=== PATIENT | female | born 1990 | race Caucasian/White ===

== ENCOUNTER 2017-07-16 18:39 | Emergency (ER) | END 2017-07-16 18:58 | disposition home or self-care (01) ==

== ENCOUNTER 2017-12-16 17:43 | Emergency (ER) | END 2017-12-16 22:09 | disposition home or self-care (01) ==

== ENCOUNTER 2017-12-20 17:14 | Emergency (ER) | END 2017-12-20 20:46 | disposition home or self-care (01) ==

== ENCOUNTER 2018-06-12 02:07 | Emergency (ER) | payer MEDICAID, OTHER ==
[~2018-06-12] VITALS: Ht 152.4 cm; Wt 56.2 kg
[~2018-06-12 02:07] MED LIST: ACET325T33 PO; CEPH-443 PO; CIPR-193 PO; FERR27TA; GUAI-637 PO; HYDR-4011 PO; HYDR-843 PO; IBUP-1542 PO; IBUP800T48 PO; NITR-58 PO; PENI500T PO; PHEN-538 PO; PREN1TAB49; SODI44SP11 NASAL; SULF1TAB31 PO
[2018-06-12 02:21] VITALS: Ht 152.4 cm; Wt 56.2 kg
[2018-06-12] MEDS ORDERED: ACETAMINOPHEN 500 MG TAB PO STA (03:06)
--- NOTE | 2018-06-12 03:06 | ERD ---
ER Documentation Chief Complaint Chief Complaint Pt reportsa fever and bodyaches x 4 days HPI This is a 28-year-old female who presents emergency department with complaints of fever, generalized body aches for 4 days. LMP: May 06, 2018. . Denies headache, head injury, loss of consciousness, dizziness, neck pain, neck stiffness, throat pain, difficulty swallowing, difficulty breathing lying flat, shoulder pain, chest pain, back pain, abdominal pain, nausea, vomiting, constipation, diarrhea, urinary symptoms, or possibility being , loss of bowel and bladder control, trauma, injury, falls, difficulty walking due to pain, numbness or tingling sensation, calf pain, recent travel, recent major surgery in the last 3 weeks, calf pain, recent long travel, recent exposure to any illness, recent antibiotic use in the last 3 months, chills, seizures. Past medical history: Denies. Surgical history: Denies. Social: Denies smoking, use of alcoholic beverages, use of illegal drugs. ROS All systems reviewed and are negative except as per history of present illness. Medications Home Meds Active Scripts Acetaminophen* (Tylophen*) 500 Mg Capsule, 1 CAP PO Q6H PRN for PAIN AND OR ELEVATED TEMP, #20 CAP Prov:PASILABANLAURENT F 06/12/18 Ibuprofen* (Motrin*) 600 Mg Tab, 600 MG PO Q6H PRN for PAIN AND OR ELEVATED TEMP, #30 TAB Prov:PASILABANLAURENT F 06/12/18 Oseltamivir Phosphate* (Tamiflu*) 75 Mg Capsule, 75 MG PO BID for 5 Days, CAP Prov:PASILABANLAURENT F 06/12/18 Azithromycin* (Zithromax*) 250 Mg Tablet, 250 MG PO .ZPACK DIRECTED, #6 TAB TAKE 500 MG (2 TABS) THE FIRST DAY THEN 250 MG (1 TAB) DAYS 2-5 Prov:PASILABANLAURENT F 06/12/18 Benzonatate* (Tessalon Perle*) 100 Mg Capsule, 100 MG PO Q8H PRN for COUGH, #15 CAP Prov:PASILABANLAURENT F 06/12/18 Hydrocodone/Acetaminophen ([place] 5-325 Tablet) 1 Each Tablet, 1 TAB PO Q6H PRN for PAIN, #7 TAB Prov:JOSE DE JESUS HANNA MD 12/20/17 Ciprofloxacin Hcl* (Ciprofloxacin Hcl*) 250 Mg Tablet, 250 MG PO BID, #14 TAB Prov:JOSE DE JESUS HANNA MD 12/20/17 Phenazopyridine Hcl* (Pyridium*) 200 Mg Tab, 200 MG PO TID PRN for URINARY PAIN, #6 TAB Prov:KALYANI VANN NP 12/16/17 Nitrofurantoin Monohyd Macrocr* (Macrobid*) 100 Mg Capsr, 100 MG PO BID for 7 Days, CAP Prov:KALYANI VANN NP 12/16/17 Hydroxyzine Hcl* (Hydroxyzine Hcl*) 25 Mg Tablet, 25 MG PO Q8H PRN for ITCHING, #30 TAB Prov:KALYANI VANN NP 07/16/17 Ibuprofen* (Motrin*) 600 Mg Tab, 600 MG PO Q6H PRN for PAIN AND OR ELEVATED TEMP, #30 TAB Prov:KALYANI VANN NP 07/16/17 Sulfamethoxazole/Trimethoprim* (Bactrim Ds* Tablet) 1 Each Tablet, 1 TAB PO BID, #20 TAB Prov:KALYANI VANN NP 07/16/17 Cephalexin* (Keflex*) 500 Mg Capsule, 500 MG PO QID for 10 Days, CAP Prov:KALYANI VANN NP 07/16/17 Acetaminophen* (Tylenol*) 325 Mg Tablet, 2 TAB PO Q6 PRN for PAIN AND OR ELEVATED TEMP, #20 TAB Prov:ZEE MARSH PA-C 06/29/15 Ibuprofen* (Motrin*) 800 Mg Tab, 800 MG PO Q6, #30 TAB Prov:ZEE MARSH PA-C 06/29/15 Penicillin V Potassium* (Penicillin V K*) 500 Mg Tab, 500 MG PO BID for 7 Days, TAB Prov:ZEE MARSH PA-C 06/29/15 Sodium Chloride (Saline Nasal [place]) 45 Ml [place], 2 SPRAYS NASAL Q2H PRN for NASAL CONGESTION, #1 BOTTLE Prov:ALISA CASTILLO NP 06/24/15 Guaifenesin* (Robitussin*) 100 Mg/5 Ml Syrup, 200 MG PO Q4H PRN for COUGH, #120 ML Prov:ALISA CASTILLOEduardo [employer] 06/24/15 Reported Medications Ferrous Sulfate (Iron) 1 Tab Tablet 02/25/10 Vits W-Ca,Fe,Fa(<1MG) () 1 Tab Tablet 02/25/10 Allergies Allergies: Coded Allergies: No Known Allergy (Verified Allergy, Unknown, 02/22/09) PMhx/Soc History of Surgery: No Anesthesia Reaction: No Hx Neurological Disorder: No Hx Respiratory Disorders: No Hx Cardiac Disorders: No Hx Psychiatric Problems: No Hx Miscellaneous Medical Probl: Yes (UTIs) Hx Alcohol Use: No Hx Substance Use: No Hx Tobacco Use: No Physical Exam Vitals Physical Exam Const: No acute distress Head: Atraumatic Eyes: Normal Conjunctiva ENT: Normal External Ears, Nose and Mouth. Neck: Full range of motion. No meningismus. Resp: Clear to auscultation bilaterally. No accessory muscle use on breathing. Cardio: Regular rate and rhythm, no murmurs Abd: Soft, non tender, non distended. Normal bowel sounds Skin: No petechiae or rashes Back: No midline or flank tenderness Ext: No cyanosis, or edema Neur: Awake and alert. No neurological deficits. Psych: Normal Mood and Affect Results 24 hrs Laboratory Tests Test 06/12/18 03:17 06/12/18 03:30 Urine Color YELLOW Urine Clarity SLIGHTLY CLOUDY Urine pH 5.0 Urine Specific [place] 1.025 Urine Ketones 2+ mg/dL Urine Nitrite NEGATIVE mg/dL Urine Bilirubin NEGATIVE mg/dL Urine Urobilinogen NEGATIVE mg/dL Urine Leukocyte Esterase NEGATIVE Jaida/ul Urine Microscopic RBC 2 /HPF Urine Microscopic WBC 3 /HPF Urine Squamous Epithelial Cells MODERATE /HPF Urine Mucus MODERATE /HPF Urine Hemoglobin NEGATIVE mg/dL Urine Glucose NEGATIVE mg/dL Urine Total Protein NEGATIVE mg/dl POC Beta HCG, Qualitative NEGATIVE Current Medications Medications Dose Sig/Geo Start Time Status Last (Trade) Ordered Route PRN Stop Time Admin Dose Reason Admin 1,000 mg ONCE STAT 06/12/18 DC 06/12/18 Acetaminophen PO 03:06 03:29 (Tylenol 06/12/18 03:08 Tab) Ibuprofen 600 mg ONCE ONCE 06/12/18 DC 06/12/18 (Motrin) PO 03:30 03:28 06/12/18 03:31 Oseltamivir 75 mg ONCE ONCE 06/12/18 DC 06/12/18 Phosphate PO 04:00 04:07 (Tamiflu) 06/12/18 04:01 Procedures/MDM Diagnostic tests: Influenza a and B: Positive for influenza A. Negative for influenza B. POC urine : Negative. Urinalysis: Reviewed. Chest x-ray: No evidence for active cardiopulmonary disease. Treatment: Motrin. Tylenol p.o. Tamiflu. Re-evaluation: Temperature responded to antipyretic medication. Denies headache, neck pain, neck stiffness, shoulder pain, chest pain. No abdominal tenderness. No retractions noted. No accessory muscle use in breathing. Lung sounds are clear to auscultation. No neurological deficit. Stated that she feels comfortable going home. Differential diagnosis I have low suspicion for sepsis, severe serious bacterial infection, meningitis, mastoiditis, peritonsillar abscess, pneumonia, bronchospasm, status asthmaticus, severe dehydration, septic shock. Final diagnosis: Influenza A. Bronchitis. Prescription: Motrin. Tylenol. Tessalon Perles. Tamiflu. Azithromycin. Follow-up with PCP in the next 24-48 hours. Come back here in the emergency department for any new symptoms or any worsening symptoms. All questions and concerns were answered. Patient and family members verbalized understanding and agreed with plan of care. Hemodynamically stable on discharge. Departure Diagnosis: Primary Impression: Fever Additional Impressions: Influenza A Bronchitis Condition: Stable Additional Instructions: Follow-up with PCP in the next 24-48 hours. Come back here in the emergency department for any new symptoms or any worsening symptoms. LAURENT DELGADO Jun 12, 2018 03:06
[2018-06-12] MEDS ORDERED: IBUPROFEN 600 MG TAB PO ONE (03:30)
[2018-06-12] MEDS ORDERED: OSELTAMIVIR 75 MG CAP PO ONE (04:00)
[2018-06-12] MEDS ORDERED: IBUP-1542 PO (04:25)
[2018-06-12] MEDS ORDERED: ACET500C5 PO (04:25)
[2018-06-12] MEDS ORDERED: OSEL75CA23 PO (04:25)
[2018-06-12] MEDS ORDERED: BENZ-6 PO (04:25)
[2018-06-12] MEDS ORDERED: AZIT250T PO (04:25)
[2018-06-12 04:40] VITALS: BP 121/81; PULSE 98; RESP 16
== END 2018-06-12 04:45 | disposition home or self-care (01) ==
LOC: FTE 02:07
DX: J10.1 Influenza due to other identified influenza virus with other respiratory manifestations (principal); J40 Bronchitis, not specified as acute or chronic
CPT/HCPCS: 71046; 81001; 81025; 87400; Z7502; Z7610; 81003